=== PATIENT | female | born 1960 | race Caucasian/White ===

== ENCOUNTER 2020-12-24 22:38 | Emergency (ER) | payer OTHER ==
[2020-12-25 03:34] LABS: BASOPHIL 0.8 % (0-2); EOSINOPHIL 3.1 % (0-5); HCT 34.2 % (37.0-47.0); HGB 11.2 g/dl (12.5-16.0); LYMPHOCYTE 21.4 % (15-48); MCH 29.3 pg (25.0-31.0); MCHC 32.7 g/dL (32.0-36.0); MCV 89.5 fL (78.0-100.0); MONOCYTE 7.4 % (0-12); MPV 9.9 fL (6.0-9.5); NRBC 0; PLT 233 K/uL (150-400); RBC 3.82 M/uL (4.20-5.40); RDW 13.2 % (11.5-14.0)
[2020-12-25 03:50] LABS: ALBUMIN 3.5 g/dL (3.4-5.0); BILIRUBIN - TOTAL 0.3 mg/dL (0.2-1.0); BUN/CREAT RATIO (CALC) 13.6 RATIO; CREATININE 0.66 mg/dL (0.51-0.95); GLOBULIN (CALCULATION) 3.2 g/dL; POTASSIUM 3.1 mmol/L (3.5-5.1); TOTAL PROTEIN 6.7 g/dL (6.4-8.2)
[2020-12-25 04:12] LABS: CORONAVIRUS 2019 SARS-COV-2 NEGATIVE (NEGATIVE); INFLUENZA A NAA NEGATIVE (NEGATIVE)
[2020-12-25] MEDS ORDERED: MEDROL 4MG DOSEP4 MG PO (05:33)
[2020-12-25] MEDS ORDERED: ZPAK PO (05:33)
== END 2020-12-25 05:45 | disposition home or self-care (01) ==
LOC: FER 22:38
PROVIDERS: Emergency Medicine
DX: J40 Bronchitis, not specified as acute or chronic (principal); Z20.822 Contact with and (suspected) exposure to COVID-19; I10 Essential (primary) hypertension; J44.9 Chronic obstructive pulmonary disease, unspecified
CPT/HCPCS: 36415; 71045; 80053; 84484; 85025; 85379; 93005; J2930; J7030; U0002